=== PATIENT | female | born 1985 | race Asian ===

== ENCOUNTER 2024-03-21 15:08 | Observation (INO) | payer OTHER ==
[2024-03-21] MEDS: LORazepam 1 MG TAB PO STA (16:51)
--- NOTE | 2024-03-21 17:07 | ED ---
General Adult HPI - General Chief complaint: Medical Clearance Stated complaint: withdrawl Time Seen by Provider: 03/21/24 16:25 Source: patient, RN notes reviewed, old records reviewed Mode of arrival: ambulatory Limitations: no limitations - History of Present Illness Initial comments: 46-year-old female who had presented to [facility] for alcohol abuse was sent to the emergency department with request for medical clearance. Patient states her last drink was this morning. She is beginning to feel significant withdrawal symptoms.. She has no palpitations, no chest pain, no prior cardiac history. No fever. No dyspnea. Patient was sent by [facility] with concern for evaluation of previous palpitations several weeks ago. - Related Data Allergies Allergy/AdvReac Type Severity Reaction Status Date / Time No Known Allergies Allergy Verified 03/21/24 15:48 Review of Systems ROS Statement: Those systems with pertinent positive or pertinent negative responses have been documented in the HPI. ROS Other: All systems not noted in ROS Statement are negative. Past Medical History Past Medical History: No Reported History Past Surgical History: No Surgical Hx Reported Past Psychological History: No Psychological Hx Reported Smoking Status: Current every day smoker Past Alcohol Use History: Abuse, Daily, Heavy Past Drug Use History: None Reported General Exam Limitations: no limitations General appearance: alert, anxious Head exam: Present: atraumatic, normocephalic Eye exam: Present: normal appearance, PERRL ENT exam: Present: normal exam Neck exam: Present: normal inspection. Absent: tenderness, meningismus Respiratory exam: Present: normal lung sounds bilaterally. Absent: respiratory distress, wheezes Cardiovascular Exam: Present: regular rate, normal rhythm GI/Abdominal exam: Present: soft. Absent: distended, tenderness Neurological exam: Present: alert, oriented X3, CN II-XII intact. Absent: motor sensory deficit Psychiatric exam: Present: anxious Skin exam: Present: warm, dry, other (Diffuse psoriasis) Course Vital Signs 03/21/24 15:49 Temperature 98.2 F Pulse Rate 98 Respiratory 18 Rate Blood Pressure 112/80 O2 Sat by Pulse 98 Oximetry Medical Decision Making - Medical Decision Making Was pt. sent in by a medical professional or institution (, PA, SALES REPRESENTATIVE ADDING MACHINES, urgent care, hospital, or care home...) When possible be specific @Sent from [facility] Did you speak to anyone other than the patient for history (EMS, parent, family, police, friend...)? What history was obtained from this source @ -No Did you review nursing and triage notes (agree or disagree)? Why? @ -I reviewed and agree with nursing and triage notes Were old charts reviewed (outside hosp., previous admission, EMS record, old EKG, old radiological studies, urgent care reports/EKG's, care home records)? Report findings @ -No old charts were reviewed Differential Palpitations Ventricular arrhythmias, atrial arrhythmias, myocardial infarction, anemia, thyrotoxicosis, electrolyte imbalance, hypokalemia, pulmonary embolism, pulmonary disease, drugs, alcohol, anxiety, stress.... This is not meant to be an all-inclusive list. Alcohol withdrawal, delirium tremens, withdrawal seizure EKG interpreted by me (3pts min.). @ -[EKG: Sinus tachycardia with a rate of 101, NM interval 162, QRS duration 81, QTc [address] segment changes. X-rays interpreted by me (1pt min.). @ -None done CT interpreted by me (1pt min.). @ -None done U/S interpreted by me (1pt. min.). @ -None done What testing was considered but not performed or refused? (CT, X-rays, U/S, labs)? Why? @ -None What meds were considered but not given or refused? Why? @ -None Did you discuss the management of the patient with other professionals (professionals i.e. , PA, SALES REPRESENTATIVE ADDING MACHINES, lab, RT, psych nurse, director social service, senior android developer, teacher, aadc plans staff officer, skilled nursing case manager)? Give summary @ -Case discussed with sound physician group Was smoking cessation discussed for >3mins.? @ -No Was critical care preformed (if so, how long)? @ -No Were there social determinants of health that impacted care today? How? (Homelessness, low income, unemployed, alcoholism, drug addiction, transportation, low edu. Level, literacy, decrease access to med. care, fdc, rehab)? @ -No Was there de-escalation of care discussed even if they declined (Discuss DNR or withdrawal of care, Hospice)? DNR status @ -No What co-morbidities impacted this encounter? (DM, HTN, Smoking, COPD, CAD, Cancer, CVA, ARF, Chemo, Hep., AIDS, mental health diagnosis, sleep apnea, morbid obesity)? @Alcohol abuse Was patient admitted / discharged? Hospital course, mention meds given and route, prescriptions, significant lab abnormalities, going to OR and other pertinent info. @46-year-old female sent from [facility] for medical clearance. Patient is in sinus rhythm she has no cardiac complaints. Patient does have significant withdrawal symptoms in the emergency department, given Ativan will be observed overnight for telemetry and alcohol withdrawal. Undiagnosed new problem with uncertain prognosis? @ -No Drug Therapy requiring intensive monitoring for toxicity (Heparin, Nitro, Insulin, Cardizem)? @ -No Were any procedures done? @ -No Diagnosis/symptom? @ -alcohol withdrawal Acute, or Chronic, or Acute on Chronic? @Acute Uncomplicated (without systemic symptoms) or Complicated (systemic symptoms)? @ -Default Side effects of treatment? @ -No Exacerbation, Progression, or Severe Exacerbation? @ -No Poses a threat to life or bodily function? How? (Chest pain, USA, CA, pneumonia, PE, COPD, DKA, ARF, appy, cholecystitis, CVA, Diverticulitis, Homicidal, Suici rosaline, threat to staff... and all critical care pts) @Moderate risk, alcohol withdrawal, delirium tremens Disposition Clinical Impression: Alcohol withdrawal Disposition: ADMITTED IP TO THIS HOSP Condition: Stable Is patient prescribed a controlled substance at d/c from ED?: No Referrals: Nonstaff,Physician [Primary Care Provider] - 1-2 days Time of Disposition: 19:33
[2024-03-21] MEDS ORDERED: LORazepam 2 MG/ML INJ IV PRN (19:33)
[2024-03-21] MEDS ORDERED: NALOXONE 0.4 MG/ML 1 ML VIAL IV PRN (19:34)
[2024-03-21 19:38] LABS: Basophils % (A) 0 %; Eosinophils # (A) 0.1 k/uL (0-0.7); Eosinophils % (A) 1 %; HCT 34.1 % (34.0-46.0); HGB 11.6 gm/dL (11.4-16.0); Lymphocytes # (A) 1.6 k/uL (1.0-4.8); Lymphocytes % (A) 17 %; MCH 33.6 pg (25.0-35.0); MCHC 33.9 g/dL (31.0-37.0); MCV 99.2 fL (80.0-100.0); Macrocytosis Slight; Mean Platelet Volume 7.2; Monocytes # (A) 0.3 k/uL (0-1.0); Monocytes % (A) 4 %; Neutrophils # (A) 7.2 k/uL (1.3-7.7); Neutrophils % (A) 77 %; Platelet Count 258 k/uL (150-450); RBC 3.44 m/uL (3.80-5.40); WBC 9.3 k/uL (3.8-10.6)
[2024-03-21] MEDS: SODIUM CHLORIDE 0.9% 1,000 ML IV SCH (19:43)
[2024-03-21 19:48] LABS: ALT 161 U/L (4-34); AST 41 U/L (14-36); African American GFR (CKD) >90 (>60 ml/min/1.73 sqM); Albumin 4.6 g/dL (3.5-5.0); Alkaline Phosphatase 116 U/L (38-126); Anion Gap 9 mmol/L; Blood Urea Nitrogen 20 mg/dL (7-17); Calcium 8.7 mg/dL (8.4-10.2); Carbon Dioxide 23 mmol/L (22-30); Chloride 102 mmol/L (98-107); Glucose 95 mg/dL (74-99); Magnesium 1.4 mg/dL (1.6-2.3); Non-African American GFR(CKD) >90 (>60 ml/min/1.73 sqM); Sodium 134 mmol/L (137-145); Total Bilirubin 0.5 mg/dL (0.2-1.3); Total Protein 7.3 g/dL (6.3-8.2)
[2024-03-21] MEDS: MAGNESIUM SULFATE-D5W PMX 1 GM in DEXTROSE/WATER 1 100ML.BAG IVPB ONE (22:11)
[2024-03-21] MEDS: LORazepam 2 MG/ML INJ IV PRN (22:18)
[2024-03-21] MEDS: NICOTINE 21MG/24HR PATCH TRANSDERM SCH (23:07)
--- NOTE | 2024-03-21 23:40 | P.HPIM ---
History of Present Illness H&P Date: 03/21/24 Chief complaint: Medical clearance for [facility] rehabilitation History of present illness; 38-year-old female with PMH of alcohol abuse presents for medical clearance for [facility] rehabilitation. Of note patient reports she was previously evaluated by cardiology for palpitations several weeks ago and notes that she had a manager office which revealed no abnormalities. Reports her last drink was this morning and that she normally drinks approximately 1/5 of hard liquor every day. States she is starting to feel significant withdrawal symptoms. Denies palpitations, chest pain, prior cardiac history, fever, dyspnea on the nausea, vomiting, diarrhea, constipation. The patient had presented at [facility] for alcohol detox and rehabilitation but had mentioned that she had palpitations, at which time she was advised to get medical clearance at the hospital. Patient reports a history of alcohol withdrawal seizures with severe DTs and hospitalization with ICU stay requiring Ativan infusion. Labs: WBC 9.3, hemoglobin 11.6, MCV 99.2, sodium 134, BUN 20, creatinine 0.7, magnesium 1.4, AST 41, ALT 161, and albumin 4.6. REVIEW OF SYSTEMS: As stated above in HPI. The rest of the 14-point review of systems is negative. PHYSICAL EXAMINATION: GENERAL: The patient is alert and oriented x3, not in any acute distress, HEENT: No scleral icterus. No conjunctival pallor. Normocephalic, atraumatic. CARDIOVASCULAR: S1 and S2 present. No murmurs, rubs, or gallops. PULMONARY: Chest is clear to auscultation b/l, no wheezing or crackles. ABDOMEN: Soft nontender, no organomegaly, bowel sounds heard. MUSCULOSKELETAL: No joint swelling or deformity. EXTREMITIES: No cyanosis, no pedal edema. NEUROLOGICAL: Gross neurological examination did not reveal any focal deficits. SKIN: No rashes. No spider angiomas noted, significant psoriasis involving at least 30% of her body Assessment and plan: 38-year-old female with no pertinent PMH presents for medical clearance for [facility] rehabilitation. Patient admitted to the internal medicine service with an expected stay of less than 2 midnights. #Alcohol dependence with impending withdrawal - Last drink morning of - AST 41 and ALT 161 -Ativan IV per [facility] protocol - Give daily thiamine and folic acid and multivitamin - Start Librium 20 mg po TID - seizure and fall precautions - monitor daily electrolytes - cardiac monitoring - social and human services assistant consult # Palpitations and needing medical clearance for [facility] -Cardiac monitoring for now #Hypomagnesemia - Replete magnesium - Follow-up in the a.m. # Transaminitis, likely secondary to alcohol abuse Monitor for now Chronic Medical Conditions #Psoriasis: -Not on any home medications F: NS 75 cc/h E: Replete as needed N: Regular diet DVT ppx: Lovenox SQ 40 daily GI ppx: Protonix 40 mg p.o. daily Code status: Full code Anticipated discharge place: [facility] Anticipated discharge time: Less than 2 days Kiran Ha MD PGY-1 FM Dictation was produced using [employer] dictation software. please excuse any grammatical, word or spelling errors. Past Medical History Past Medical History: No Reported History Past Surgical History: No Surgical Hx Reported Past Psychological History: No Psychological Hx Reported Smoking Status: Current every day smoker Past Alcohol Use History: Abuse, Daily, Heavy Past Drug Use History: None Reported Medications and Allergies Home Medications Medication Instructions Recorded Confirmed Type Folic Acid 1 mg PO DAILY 03/21/24 03/21/24 History Lactulose [Constulose] 10 gm PO BID PRN 03/21/24 03/21/24 History Magnesium (Unknown Strength) 1 tab PO DAILY 03/21/24 03/21/24 History Thiamine [Vitamin B-1] 100 mg PO DAILY 03/21/24 03/21/24 History polyethylene glycoL 3350 [Miralax] 17 gm PO DAILY PRN 03/21/24 03/21/24 History traZODone HCL [Desyrel] 100 mg PO HS PRN 03/21/24 03/21/24 History Allergies Allergy/AdvReac Type Severity Reaction Status Date / Time No Known Allergies Allergy Verified 03/21/24 20:47 Physical Exam Vitals: Vital Signs Temp Pulse Resp BP Pulse Ox 03/21/24 15:49 98.2 F 98 18 112/80 98 Intake and Output 03/21/24 03/21/24 03/21/24 06:59 14:59 22:59 Other: Weight 47.627 kg Results CBC & Chem 7: 03/21/24 19:25 03/21/24 19:25 Labs: Abnormal Lab Results - Last 24 Hours (Table) 03/21/24 03/21/24 Range/Units 19:25 19:25 RBC 3.44 L (3.80-5.40) m/uL Sodium 134 L (137-145) mmol/L BUN 20 H (7-17) mg/dL Magnesium 1.4 L (1.6-2.3) mg/dL AST 41 H (14-36) U/L ALT 161 H (4-34) U/L
[2024-03-22] MEDS: LORazepam 2 MG/ML INJ IV PRN (01:34)
[2024-03-22] MEDS: FOLIC ACID 1 MG TAB PO SCH (09:03)
[2024-03-22] MEDS: THIAMINE 100 MG TAB PO SCH (09:03)
[2024-03-22] MEDS: MULTIVITAMINS, THERA 1 EACH TAB PO SCH (09:03)
[2024-03-22] MEDS: PANTOPRAZOLE 40 MG TABLET PO SCH (09:03)
[2024-03-22] MEDS: ONDANSETRON 4 MG/2 ML VIAL IVP PRN (09:04)
[2024-03-22] MEDS: ENOXAPARIN 40 MG/0.4 ML SYRINGE SQ SCH (09:06)
[2024-03-22 10:44] LABS: ALT 117 U/L (8-44); AST 23 U/L (13-35); Albumin 3.8 g/dL (3.8-4.9); Albumin/Globulin Ratio 2.24 Ratio (1.60-3.17); Alkaline Phosphatase 107 U/L (41-126); BUN/Creat Ratio 23.67 Ratio (12.00-20.00); Blood Urea Nitrogen 14.2 mg/dL (9.0-27.0); Calcium 8.2 mg/dL (8.7-10.3); Carbon Dioxide 22.8 mmol/L (21.6-31.8); Chloride 105 mmol/L (96-109); Globulin 1.7 g/dL (1.6-3.3); Glucose 99 mg/dL (70-110); Magnesium 1.9 mg/dL (1.5-2.4); Potassium 4.2 mmol/L (3.5-5.5); Sodium 136 mmol/L (135-145); Total Bilirubin 0.4 mg/dL (0.3-1.2); Total Protein 5.5 g/dL (6.2-8.2)
[2024-03-22 12:28] VITALS: TEMP 98.4
--- NOTE | 2024-03-22 15:47 | P.PN ---
Subjective Progress Note Date: 03/22/24 Hospital Course: 38-year-old female with history of alcohol dependence presenting for palpitati ons as well as alcohol withdrawal symptoms. Vital signs within normal limits. Laboratory workup showed sodium of 134, magnesium 1.4. EKG showed sinus tachycardia. Patient admitted for alcohol withdrawal. Subjective: Patient seen and examined at bedside. No acute events overnight. Pertinent positives and negatives as discussed above, a complete review of systems was performed and all other systems are negative. Vitals Signs Reviewed. General: Nontoxic, no distress, appears at stated age Derm: Warm, dry Head: Atraumatic, normocephalic, symmetric Eyes: EOMI, no lid lag, anicteric sclera Mouth: No lip lesion, mucus membranes moist Cardiovascular: S1S2 reg, no murmur Lungs: CTA bilateral, no rhonchi, no rales, no accessory muscle use Abdominal: Soft, nontender to palpation, no guarding, no appreciable organomegaly Ext: No gross muscle atrophy, no edema, no contractures Neuro: CN II-XI grossly intact, no focal neuro deficits, mild extension tremor Psych: Alert, oriented, appropriate affect Data Reviewed Today: Pertinent Labs: Sodium 136, magnesium 1.9, creatinine 0.6 Imaging: No new imaging Assessment and Plan: Active: Alcohol withdrawal Alcohol dependence -Discontinued Librium -Continue IV Ativan as needed per CIWA score, monitor for sedation -Thiamine 100 mg daily Continue telemetry monitoring as patient was complaining of palpitations Nicotine dependence -Nicotine patch 21 mg daily Resolved: Mild hyponatremia Hypomagnesemia DVT ppx: Lovenox Code status: Full code Anticipated discharge place: Pending clinical course Anticipated discharge time: Pending clinical course Objective - Vital Signs Vital signs: Vital Signs Temp 98.4 F 03/22/24 12:28 Pulse 73 03/22/24 14:19 Resp 18 03/22/24 14:19 BP 102/65 03/22/24 14:19 Pulse Ox 98 03/22/24 14:19 FiO2 Intake & Output 03/21/24 03/22/24 03/22/24 18:59 06:59 18:59 Weight 47.627 kg - Labs CBC & Chem 7: 03/21/24 19:25 03/22/24 07:19 Labs: Abnormal Lab Results - Last 24 Hours (Table) 03/21/24 03/21/24 03/22/24 Range/Units 19:25 19:25 07:19 RBC 3.44 L (3.80-5.40) m/uL Sodium 134 L (137-145) mmol/L BUN 20 H (7-17) mg/dL BUN/Creatinine Ratio 23.67 H (12.00-20.00) Ratio Calcium 8.2 L (8.7-10.3) mg/dL Magnesium 1.4 L (1.6-2.3) mg/dL AST 41 H (14-36) U/L ALT 161 H 117 H (4-34) U/L Total Protein 5.5 L (6.2-8.2) g/dL
[2024-03-23] MEDS: ACETAMINOPHEN TAB 325 MG TAB PO PRN (00:25)
[2024-03-23 13:44] VITALS: BP 121/73; PULSE 76; RESP 17
--- NOTE | 2024-03-23 14:45 | P.DS ---
Providers Date of admission: 03/21/24 19:34 Expected date of discharge: 03/23/24 Attending physician: David Patel MD Primary care physician: Physician Nonstaff Hospital Course: Discharge Diagnosis: Alcohol withdrawal Alcohol dependence Sinus tachycardia Nicotine dependence Mild hyponatremia Hypomagnesemia Hospital Course: 38-year-old female with history of alcohol dependence presenting for palpitations as well as alcohol withdrawal symptoms. Vital signs within normal limits. Laboratory workup showed sodium of 134, magnesium 1.4. EKG showed sinus tachycardia. Patient admitted for alcohol withdrawal. Patient was main tained on telemetry. No arrhythmias noted. Patient being discharged to [facility]. Patient seen and examined at bedside. Vital signs reviewed and stable. General: Nontoxic, no distress, appears at stated age Derm: Warm, dry Head: Atraumatic, normocephalic, symmetric Eyes: EOMI, no lid lag, anicteric sclera Mouth: No lip lesion, mucus membranes moist Cardiovascular: S1S2 reg, no murmur Lungs: CTA bilateral, no rhonchi, no rales, no accessory muscle use Abdominal: Soft, nontender to palpation, no guarding, no appreciable organomegaly Ext: No gross muscle atrophy, no edema, no contractures Neuro: CN II-XI grossly intact, no focal neuro deficits, extension tremor Psych: Alert, oriented, appropriate affect A total of 36 minutes of time were spent preparing this complex discharge summa ry. Patient was discharged on 03/23/2024 at 1258. Patient Condition at Discharge: Stable Plan - Discharge Summary New Discharge Prescriptions: Continue polyethylene glycoL 3350 [Miralax] 17 gm PO DAILY PRN PRN Reason: Constipation Thiamine [Vitamin B-1] 100 mg PO DAILY Magnesium (Unknown Strength) 1 tab PO DAILY Folic Acid 1 mg PO DAILY Lactulose [Constulose] 10 gm PO BID PRN PRN Reason: Constipation traZODone HCL [Desyrel] 100 mg PO HS PRN PRN Reason: SLEEP Discharge Medication List Folic Acid 1 mg PO DAILY 03/21/24 [History] Lactulose [Constulose] 10 gm PO BID PRN 03/21/24 [History] Magnesium (Unknown Strength) 1 tab PO DAILY 03/21/24 [History] Thiamine [Vitamin B-1] 100 mg PO DAILY 03/21/24 [History] polyethylene glycoL 3350 [Miralax] 17 gm PO DAILY PRN 03/21/24 [History] traZODone HCL [Desyrel] 100 mg PO HS PRN 03/21/24 [History] Follow up Appointment(s)/Referral(s): [facility] [NON-STAFF] - 1 Week Nonstaff,Physician [Primary Care Provider] - 1-2 days Patient Instructions/Handouts: Alcohol Withdrawal (DC) Activity/Diet/Wound Care/Special Instructions: Please see PCP. Discharge Disposition: OTHER INSTITUTION NOT DEFINED
== END 2024-03-23 13:45 | disposition other institution (70) ==
LOC: EC 15:08 → 5NMEDONC 19:34
PROVIDERS: ADMIT Internal Medicine; ATTEND Internal Medicine
DX: F10.239 Alcohol dependence with withdrawal, unspecified (principal); E83.42 Hypomagnesemia; E87.1 Hypo-osmolality and hyponatremia; L40.9 Psoriasis, unspecified; R74.01 Elevation of levels of liver transaminase levels; F17.200 Nicotine dependence, unspecified, uncomplicated; Z79.899 Other long term (current) drug therapy
CPT/HCPCS: 96376 ×2; 96361 ×2; 96365; 96372 ×2; 96375 ×2; 99285; 36415; 93005; 80053 ×2; 83735 ×2; 85025; G0378 ×3; S4990 ×3; J2060 ×3; J2405; J1650 ×2; J3475